=== PATIENT | female | born 1990 | race Caucasian/White ===

== ENCOUNTER 2016-11-24 21:52 | Emergency (ER) | payer BC ==
[~2016-11-24] VITALS: Ht 162.6 cm; Wt 66.0 kg
[~2016-11-24 21:52] MED LIST: CLEOCIN HCL300 MG PO; DAILY VALUE1 EACH PO; FLEXERIL10 MG PO; MOTRIN800 MG PO; NOHOMEMEDS; NUVARING VAGIN1 EACH PO; TRI-SPRINTEC1 EACH PO
[2016-11-24] MEDS ORDERED: KEFLEX500 MG PO (22:42)
[2016-11-24] MEDS ORDERED: NORCO 5/3251 TABLET PO (22:42)
[2016-11-24 22:59] VITALS: BP 136/87
== END 2016-11-24 23:00 | disposition home or self-care (01) ==
LOC: EME 21:52 → EXP 21:52
PROC: 3E0T3BZ Introduction of Anesthetic Agent into Peripheral Nerves and Plexi, Percutaneous Approach (ICD-10-PCS; principal; 2016-11-24)
DX: K08.89 Other specified disorders of teeth and supporting structures (principal); F17.200 Nicotine dependence, unspecified, uncomplicated
CPT/HCPCS: 99281; 99284